=== PATIENT | male | born 1980 | race African-American/Black ===

== ENCOUNTER 2018-08-16 14:07 | Inpatient (IN) | payer OTHER ==
[2018-08-16 15:34] VITALS: BMI 26.1
--- NOTE | 2018-08-16 16:33 | HP ---
CIWA Score - Admission Criteria [facility] Guidelines: Admission for Medically Managed Detox: Requires at least one of the followin. CIWA greater than 12 2. Seizures within the past 24 hours 3. Delirium tremens within the past 24 hours 4. Hallucinations within the past 24 hours 5. Acute intervention needed for co occurring medical disorder 6. Acute intervention needed for co occurring psychiatric disorder 7. Severe withdrawal that cannot be handled at a lower level of care (continued vomiting, continued diarrhea, abnormal vital signs) requiring intravenous medication and/or fluids 8. Admission ROS S - HPI Chief Complaint: here for rehab from cocaine/THC. 37 yo with no medical problems. Says smokes "eight ball" of cocaine a day. States he is hoping to stay away from using cocaine. Lives in [place]. Says never been here. MJ- last use 2-3 weeks ago. IStop: Suboxone 8/2mg #60 strips in June and August 04. Pt states he is not using opiates- and pt states not taking this- someone took it from him. Allergies/Adverse Reactions: Allergies Allergy/AdvReac Type Severity Reaction Status Date / Time No Known Allergies Allergy Verified 08/16/18 15:31 Exam Limitations: No Limitations - Ebola screening Have you traveled outside of the country in the last 21 days: No Have you had contact with anyone from an Ebola affected area: No Do you have a fever: No - Review of Systems Constitutional: No Symptoms Reported EENT: reports: No Symptoms Reported Respiratory: reports: No Symptoms reported Cardiac: reports: No Symptoms Reported GI: reports: No Symptoms Reported : reports: No Symptoms Reported Musculoskeletal: reports: No Symptoms Reported Integumentary: reports: No Symptoms Reported Neuro: reports: No Symptoms reported Endocrine: reports: No Symptoms Reported Hematology: reports: No Symptoms Reported Psychiatric: reports: No Sypmtoms Reported Patient History - Patient Medical History Hx Anemia: Yes - Patient Surgical History Past Surgical History: No - PPD History Previous Implant?: Yes - Smoking Cessation Smoking history: Current every day smoker Aproximately how many cigarettes per day: 3 Hx Chewing Tobacco Use: No Initiated information on smoking cessation: Yes 'Breaking Loose' booklet given: 08/16/18 - Substance & Tx. History Hx Substance Use: Yes Substance Use Type: Cocaine, Marijuana Hx Substance Use Treatment: No - Substances abused Cocaine Substance route: Smoking Frequency: Daily Amount used: $200 Age of first use: 24 Date of last use: 08/15/18 Crack Substance route: Smoking Frequency: Daily Amount used: $200 Age of first use: 24 Date of last use: 08/15/18 Family Disease History - Family Disease History Family Disease History: Diabetes: Sister ( from DM) Admission Physical Exam S - Vital Signs Vital Signs: Vital Signs - 24 hr 08/16/18 15:32 Temperature 97.6 F Pulse Rate 77 Respiratory 18 Rate Blood Pressure 130/68 - Physical General Appearance: Yes: Within Normal Limits HEENTM: Yes: Within Normal Limits, EOMI, Hearing grossly Normal, Normal ENT Inspection Respiratory: Yes: Within Normal Limits, Chest Non-Tender Neck: Yes: Within Normal Limits Cardiology: Yes: Within Normal Limits, Regular Rate Abdominal: Yes: Within Normal Limits, Normal Bowel Sounds Musculoskeletal: Yes: Within Normal Limits, full range of Motion, Gait Steady Extremities: Yes: Within Normal Limits Neurological: Yes: Within Normal Limits Integumentary: Yes: Within Normal Limits Lymphatic: Yes: Within Normal Limits - Diagnostic (1) Cocaine use disorder Current Visit: Yes Status: Acute (2) Marijuana use Current Visit: Yes Status: Acute (3) Nicotine use disorder Current Visit: Yes Status: Acute Breathalyzer - Breathalyzer Breathalyzer: 0 Urine Drug Screen - Test Device Lot number: [id number] Expiration date: 03/16/20 - Control Is test valid?: Yes - Results Drug screen NEGATIVE: No Urine drug screen results: THC-Marijuana, JOANIE-Cocaine Inpatient Rehab Admission - Rehab Decision to Admit Inpatient rehab admission?: Yes - Initial Determination Are CD services needed?: Yes Free of communicable disease: Yes Not in need of hospitalization: Yes - Rehab Admission Criteria Previous failed treatment: Yes Poor recovery environment: Yes Comorbidities: Yes Lacks judgement: Yes Patient is meeting Inpatient Rehab admission criteria:: Yes
[2018-08-16] MEDS ORDERED: MENTHOL/PHENOL 1 EACH UD MM PRN (17:02)
[2018-08-16] MEDS ORDERED: MAGNESIUM CITRATE 300 ML BOTTLE PO PRN (17:02)
[2018-08-16] MEDS ORDERED: hydrOXYzine PAMOATE 25 MG CAPSULE (FP) PO PRN (17:02)
[2018-08-16] MEDS ORDERED: IBUPROFEN 400 MG TABLET (FP) PO PRN (17:02)
[2018-08-16] MEDS ORDERED: P-EPHED 60MG/TRIPROLIDI 2.5MG TABLET PO PRN (17:02)
[2018-08-16] MEDS ORDERED: MAGNESIUM HYDROX 2400MG/30ML ORAL SUSPENSION 30 ML CUP PO PRN (17:02)
[2018-08-16] MEDS ORDERED: MAG HYDROX/AL HYDROX/SIMETH 30 ML UNIT-DOSE CUP PO PRN (17:02)
[2018-08-16] MEDS ORDERED: LOPERAMIDE HCL 2 MG CAPSULE PO PRN (17:02)
[2018-08-16] MEDS ORDERED: guaiFENesin 200 MG/10 ML 10 ML UNIT-DOSE CUPS PO PRN (17:02)
[2018-08-16] MEDS ORDERED: ACETAMINOPHEN 325 MG TABLET (FP) PO PRN (17:02)
[2018-08-16] MEDS: THIAMINE HCL 100 MG TABLET (FP) PO SCH (21:45)
[2018-08-16] MEDS ORDERED: TUBERCULIN PPD 5 TU/0.1ML VIAL ID ONE (21:47)
[2018-08-16] MEDS: MELATONIN 5 MG TABLETS PO PRN (21:48)
[2018-08-16 23:06] LABS: EPI CELLS 1.4 /HPF (0-5/HPF); PH,URINE 6.5 (5.0-8.0); URINE APPEARANCE CLEAR; URINE BACTERIA 10.3 /hpf (NEGATIVE); URINE BILIRUBIN 1+ (NEGATIVE); URINE CASTS 3 /lpf (0-8); URINE COLOR DK YELLOW; URINE GLUCOSE (UA) NEGATIVE (NEGATIVE); URINE KETONE TRACE (NEGATIVE); URINE LEUK ESTERASE TRACE (NEGATIVE); URINE NITRITE NEGATIVE (NEGATIVE); URINE PROTEIN TRACE (NEGATIVE); URINE RBC 1 /hpf (0-4); URINE UROBILINOGEN 4.0 E.U/dl mg/dL (0.2-1.0); URINE WBC 2 /hpf (0-5)
[2018-08-17 10:13] LABS: HEMATOCRIT 41.8 % (35.4-49); HEMOGLOBIN 13.7 GM/dL (11.7-16.9); MCH 28.7 pg (25.7-33.7); MCHC 32.8 g/dl (32.0-35.9); MEAN CELL VOLUME 87.6 fl (80-96); MEAN PLT VOLUME 10.4 fl (7.5-11.1); PLATELET COUNT 178 K/MM3 (134-434); RBC 4.78 M/mm3 (4.00-5.60); RDW 14.3 % (11.9-15.9); WHITE BLOOD COUNT 4.1 K/mm3 (4.0-10.0)
[2018-08-17 10:33] LABS: ALBUMIN 3.6 g/dl (3.4-5.0); ALK PHOS 55 U/L (45-117); ANION GAP 7 MMOL/L (8-16); BILIRUBIN,TOTAL 0.3 mg/dL (0.2-1); BLOOD UREA NITROGEN 12 mg/dL (7-18); CALCIUM 9.2 mg/dL (8.5-10.1); CHLORIDE 108 mmol/L (98-107); CO2 26 mmol/L (21-32); CREATININE 0.8 mg/dL (0.55-1.3); GLUCOSE,RANDOM 112 mg/dL (74-106); POTASSIUM 3.6 mmol/L (3.5-5.1); SGOT/AST 16 U/L (15-37); SGPT/ALT 23 U/L (13-61); SODIUM 141 mmol/L (136-145); TOT PROT 6.6 g/dl (6.4-8.2)
[2018-08-17] MEDS: PRENATAL VITAMINS W/ FOLIC ACID TABLET (FP) PO SCH (10:38)
[2018-08-17] MEDS: MELATONIN 5 MG TABLETS PO PRN (21:27)
[2018-08-17] MEDS: THIAMINE HCL 100 MG TABLET (FP) PO SCH (21:27)
--- NOTE | 2018-08-18 09:34 | PN ---
[facility] Progress Note Note: Resident seen and evaluated per report from RN that patient had an unwitnessed fall. Per patient, he was walking, felt faint and hit the L side of his face on the floor", he endorses a "few seconds" of LOC. Patient was met on bed in his room, A & O x 3, not in acute distress. No ecchymosis, laceration or swelling is noted to face, Outer corner of L eye tender to touch, no vision changes. Patient will be seen to the ED at [facility] for post fall eval. Report given to MD Gatica.
[2018-08-18] MEDS: PRENATAL VITAMINS W/ FOLIC ACID TABLET (FP) PO SCH (10:41)
[2018-08-18] MEDS: THIAMINE HCL 100 MG TABLET (FP) PO SCH (21:30)
[2018-08-18] MEDS: MELATONIN 5 MG TABLETS PO PRN (21:32)
[2018-08-19] MEDS: PRENATAL VITAMINS W/ FOLIC ACID TABLET (FP) PO SCH (10:26)
[2018-08-19] MEDS: THIAMINE HCL 100 MG TABLET (FP) PO SCH (21:24)
[2018-08-19] MEDS: MELATONIN 5 MG TABLETS PO PRN (21:24)
[2018-08-20] MEDS: PRENATAL VITAMINS W/ FOLIC ACID TABLET (FP) PO SCH (10:57)
[2018-08-20] MEDS: MELATONIN 5 MG TABLETS PO PRN (21:24)
[2018-08-20] MEDS: THIAMINE HCL 100 MG TABLET (FP) PO SCH (21:24)
[2018-08-21] MEDS: PRENATAL VITAMINS W/ FOLIC ACID TABLET (FP) PO SCH (10:19)
[2018-08-21] MEDS: THIAMINE HCL 100 MG TABLET (FP) PO SCH (21:17)
[2018-08-21] MEDS: MELATONIN 5 MG TABLETS PO PRN (21:17)
[2018-08-22] MEDS: PRENATAL VITAMINS W/ FOLIC ACID TABLET (FP) PO SCH (10:48)
[2018-08-22] MEDS: THIAMINE HCL 100 MG TABLET (FP) PO SCH (21:33)
[2018-08-23 07:01] VITALS: TEMP 97.3
[2018-08-23 09:53] VITALS: BP 111/62; PULSE 70
[2018-08-23] MEDS: PRENATAL VITAMINS W/ FOLIC ACID TABLET (FP) PO SCH (10:28)
--- NOTE | 2018-08-23 19:58 | PN ---
[facility] Progress Note Note: DISCHARGE Vital Signs Temperature 97.3 F L 08/23/18 07:00 Pulse Rate 70 08/23/18 09:30 Respiratory Rate 18 08/23/18 09:30 Blood Pressure 111/62 08/23/18 09:30 O2 Sat by Pulse Oximetry (%) Laboratory Last Values WBC 4.1 K/mm3 (4.0-10.0) 08/17/18 07:43 RBC 4.78 M/mm3 (4.00-5.60) 08/17/18 07:43 Hgb 13.7 GM/dL (11.7-16.9) 08/17/18 07:43 Hct 41.8 % (35.4-49) 08/17/18 07:43 MCV 87.6 fl (80-96) 08/17/18 07:43 MCH 28.7 pg (25.7-33.7) 08/17/18 07:43 MCHC 32.8 g/dl (32.0-35.9) 08/17/18 07:43 RDW 14.3 % (11.9-15.9) 08/17/18 07:43 Plt Count 178 K/MM3 (134-434) 08/17/18 07:43 MPV 10.4 fl (7.5-11.1) 08/17/18 07:43 Sodium 141 mmol/L (136-145) 08/17/18 07:43 Potassium 3.6 mmol/L (3.5-5.1) 08/17/18 07:43 Chloride 108 mmol/L (98-107) H 08/17/18 07:43 Carbon Dioxide 26 mmol/L (21-32) 08/17/18 07:43 Anion Gap 7 MMOL/L (8-16) L 08/17/18 07:43 BUN 12 mg/dL (7-18) 08/17/18 07:43 Creatinine 0.8 mg/dL (0.55-1.3) 08/17/18 07:43 Creat Clearance w eGFR 108.77 (>60) 08/17/18 07:43 POC Glucometer 115 UNITS (80-120) 08/18/18 09:30 Random Glucose 112 mg/dL (74-106) H 08/17/18 07:43 Calcium 9.2 mg/dL (8.5-10.1) 08/17/18 07:43 Total Bilirubin 0.3 mg/dL (0.2-1) 08/17/18 07:43 AST 16 U/L (15-37) 08/17/18 07:43 ALT 23 U/L (13-61) 08/17/18 07:43 Alkaline Phosphatase 55 U/L (45-117) 08/17/18 07:43 Total Protein 6.6 g/dl (6.4-8.2) 08/17/18 07:43 Albumin 3.6 g/dl (3.4-5.0) 08/17/18 07:43 Urine Color Dk yellow 08/16/18 21:20 Urine Appearance Clear 08/16/18 21:20 Urine pH 6.5 (5.0-8.0) 08/16/18 21:20 Ur Specific [place] 1.040 (1.010-1.035) H 08/16/18 21:20 Urine Protein Trace (NEGATIVE) 08/16/18 21:20 Urine Glucose (UA) Negative (NEGATIVE) 08/16/18 21:20 Urine Ketones Trace (NEGATIVE) H 08/16/18 21:20 Urine Blood Negative (NEGATIVE) 08/16/18 21:20 Urine Nitrite Negative (NEGATIVE) 08/16/18 21:20 Urine Bilirubin 1+ (NEGATIVE) H 08/16/18 21:20 Urine Urobilinogen 4.0 e.u/dl mg/dL (0.2-1.0) 08/16/18 21:20 Ur Leukocyte Esterase Trace (NEGATIVE) 08/16/18 21:20 Urine WBC (Auto) 2 /hpf (0-5) 08/16/18 21:20 Urine RBC (Auto) 1 /hpf (0-4) 08/16/18 21:20 Urine Casts (Auto) 3 /lpf (0-8) 08/16/18 21:20 U Pathogenic Cast Auto No Result Required. 08/16/18 21:20 U Epithel Cells (Auto) 1.4 /HPF (0-5/HPF) 08/16/18 21:20 U Sm Round Cell (Auto) No Result Required. 08/16/18 21:20 Urine Crystals (Auto) No Result Required. 08/16/18 21:20 Urine Bacteria (Auto) 10.3 /hpf (NEGATIVE) 08/16/18 21:20 RPR Titer Nonreactive (NONREACTIVE) 08/17/18 07:43 Patient left AMA after participating in verbal altercation with another patient , did not wait for provider. - Diagnostic (1) Cocaine use disorder Current Visit: Yes Status: Acute (2) Marijuana use Current Visit: Yes Status: Acute (3) Nicotine use disorder Current Visit: Yes Status: Acute
== END 2018-08-23 07:31 | disposition left against medical advice (07) | DRG 770 ==
LOC: YASAS 14:07 → Y3W 17:43
PROVIDERS: ADMIT Neuromusculoskeletal Medicine & OMM; ATTEND Neuromusculoskeletal Medicine & OMM
PROC: HZ42ZZZ Group Counseling for Substance Abuse Treatment, Cognitive-Behavioral (ICD-10-PCS; principal; 2018-08-16)
DX: F14.20 Cocaine dependence, uncomplicated (principal); F12.20 Cannabis dependence, uncomplicated; F17.210 Nicotine dependence, cigarettes, uncomplicated; S09.93XA Unspecified injury of face, initial encounter; W19.XXXA Unspecified fall, initial encounter; Y93.89 Activity, other specified; Y92.238 Other place in hospital as the place of occurrence of the external cause; Y99.8 Other external cause status
CPT/HCPCS: 36415; 80053; 81003; 82962; 85027; 86593

== ENCOUNTER 2018-08-18 10:25 | Emergency (ER) | payer OTHER ==
[2018-08-18 10:46] VITALS: TEMP 97.6; BMI 26.1
--- NOTE | 2018-08-18 11:20 | PDOC ---
Documentation entered by Ana Maria Nicholas SCRIBE, acting as scribe for Pan Roque MD. Pan Roque MD: This documentation has been prepared by the Cristopher lee Sammi, SCRIBE, under my direction and personally reviewed by me in its entirety. I confirm that the documentation accurately reflects all work, treatment, procedures, and medical decision making performed by me. History of Present Illness - General Chief Complaint: Syncope/Near Syncope Stated Complaint: SYNCOPE Time Seen by Provider: 08/18/18 10:56 - History of Present Illness Initial Comments: 08/18/18 12:00 The patient is a 37 year old male, with a significant PMH of polysubstance abuse , who presents from [facility] to the emergency department s/p fall. The patient reports experiencing a migraine this morning for about 20 min. He states he stood up during this episode, felt lightheaded/dizzy, and fell down catching himself on a desk. Patient notes hitting the left side of his face. Patient denies LOC, nausea or vision changes. Of note, patient was admitted to [facility] on 08/15 for polysubstance abuse. The patient denies chest pain or shortness of breath. Denies fever, chills, nausea, vomit, diarrhea and constipation. Denies dysuria, frequency, urgency and hematuria. Allergies: NKA Social history: polysubstance abuse Past History - Past Medical History Allergies/Adverse Reactions: Allergies Allergy/AdvReac Type Severity Reaction Status Date / Time No Known Allergies Allergy Verified 08/16/18 15:31 Home Medications: Ambulatory Orders NK [No Known Home Medication] 08/16/18 Anemia: Yes Asthma: No Cardiac Disorders: No COPD: No Diabetes: No GI Disorders: No Disorders: No HTN: No Kidney Stones: No Seizures: No - Surgical History Abdominal Surgery: No Appendectomy: No Cardiac Surgery: No Cholecystectomy: No Lung Surgery: No Neurologic Surgery: No Orthopedic Surgery: No - Reproductive History Testicular Surgery: No - Suicide/Smoking/Psychosocial Hx Smoking History: Current some day smoker Number of Cigarettes Smoked Daily: 3 Information on smoking cessation initiated: No 'Breaking Loose' booklet given: 08/16/18 Drug/Substance Use Hx: Yes (crack) Substance Use Type: Cocaine, Marijuana Hx Substance Use Treatment: No Review of Systems - Review of Systems Comments:: 08/18/18 12:01 GENERAL/CONSTITUTIONAL: No fever or chills. No weakness. HEAD, EYES, EARS, NOSE AND THROAT: No change in vision. No ear pain or discharge. No sore throat. CARDIOVASCULAR: No chest pain or shortness of breath. RESPIRATORY: No cough, wheezing, or hemoptysis. GASTROINTESTINAL: No nausea, vomiting, diarrhea or constipation. GENITOURINARY: No dysuria, frequency, or change in urination. MUSCULOSKELETAL: No joint or muscle swelling or pain. No neck or back pain. SKIN: No rash NEUROLOGIC: (+)migraine (+)dizzines (+)lightheaded. No loss of consciousness, or change in strength/sensation. *Physical Exam - Vital Signs Last Vital Signs Temp Pulse Resp BP Pulse Ox 97.6 F 72 16 109/58 L 98 08/18/18 10:44 08/18/18 10:44 08/18/18 10:44 08/18/18 10:44 08/18/18 10:44 - Physical Exam Comments: 08/18/18 12:01 General: Patient is alert and in no acute distress. Speech is clear and appropriate. Head: Atraumatic and nontender. Neck: The trachea is midline, there is no stridor. There is no midline cervical spine tenderness, full range of motion of neck. Chest: Nontender, no ecchymosis or abrasions. Heart: S1-S2, regular rate and rhythm. No murmurs. Lungs: Clear to auscultation bilaterally. Symmetric chest rise. Abdomen: Soft/nontender/nondistended. Bowel sounds are normal. There is no abdominal or flank ecchymosis. Back/Pelvis: There is no midline spine tenderness or step-off. Pelvis is stable and nontender. Extremities: (+)chronic deformity at the base of the right thumb. No focal bony tenderness throughout. 2+ distal pulses throughout. Neuro: Alert and oriented x3. Cranial nerves II through XII are intact. 5 out of 5 motor strength x4 extremities. [id number] is intact. No pronator drift. Gait is stable. Skin: No abrasions/hematomas/lacerations. Psych: Affect is appropriate. Heart Score/ECG Review #1 ECG reviewed & interpreted by me at: 10:40 General ECG Interpretation: Sinus Rhythm, Normal Rate (72), Normal Intervals ( qtc 396, LVH), No acute ischemic changes (early repolarization) #2 ECG reviewed & interpreted by me at: 11:58 General ECG Interpretation: Sinus Rhythm, Normal Rate (75), Normal Intervals ( qtc 386, LVH), No acute ischemic changes ED Treatment Course - LABORATORY CBC & Chemistry Diagram: 08/18/18 11:45 08/18/18 11:45 - RADIOLOGY Radiology Studies Ordered: Category Date Time Status HEAD CT WITHOUT CONTRAST [CT] Stat CT Scan 08/18/18 10:55 Ordered CHEST X-RAY PORTABLE* [RAD] Stat Radiology 08/18/18 10:55 Ordered Medical Decision Making - Medical Decision Making 08/18/18 11:19 went to see patient on arrival but he walked out of the ED, will list as eloped if does not return. EKG performed at triage without acute arrhythmia or ischemia. 08/18/18 12:04 Patient returned, states he went upstairs to buy some food 37-year-old male with no severe past medical history other than polysubstance abuse sent from [facility] where he is undergoing rehabilitation from cocaine and marijuana for evaluation of fall. Patient has been feeling well, was admitted on 08/16, this morning sustained one of his typical migraine headaches and upon standing became lightheaded and fell to the ground, striking his left face on a desk. He never lost consciousness, denied any other injuries, states the headache resolved and he is currently without any complaints. He reported fall to [facility] staff and was referred to the emergency department under fall protocol. Vitals are normal Patient is very well-appearing and ambulating steadily throughout the department , his trauma exam is unremarkable except for a healed left facial scar and a chronic right thumb deformity. 37-year-old male here for mechanical fall, no loss of consciousness or syncope or seizure activity. Mild head injury without red flags on history or physical exam, neurologically intact. EKG is normal Labs sent CT head per protocol If above is within normal limits, can return to rehabilitation bed 08/18/18 13:25 labs normal, ct without acute pathology, cxr clear. pt continues to ambulate about the department on his own and steady, neuro intact. can d/c from ED and return to [facility] to continue rehab. *DC/Admit/Observation/Transfer Diagnosis at time of Disposition: Accidental fall Qualifiers: Encounter type: initial encounter Qualified Code(s): W19.XXXA - Unspecified fall, initial encounter Minor head injury Qualifiers: Encounter type: initial encounter Qualified Code(s): S09.90XA - Unspecified injury of head, initial encounter - Discharge Dispostion Disposition: HOME Condition at time of disposition: Stable - Referrals - Patient Instructions Printed Discharge Instructions: DI for Closed Head Injury - Post Discharge Activity
[2018-08-18 12:17] LABS: BASO % 0.4 % (0-2.0); EOS % 2.7 % (0-4.5); HEMATOCRIT 45.4 % (35.4-49); HEMOGLOBIN 14.7 GM/dL (11.7-16.9); LYMPH % 33.9 % (8-40); MCH 28.4 pg (25.7-33.7); MCHC 32.4 g/dl (32.0-35.9); MEAN CELL VOLUME 87.6 fl (80-96); MONO % 11.9 % (3.8-10.2); NEUT % 51.1 % (42.8-82.8); PLATELET COUNT 164 K/MM3 (134-434); RBC 5.19 M/mm3 (4.00-5.60); RDW 13.8 % (11.9-15.9); WHITE BLOOD COUNT 4.7 K/mm3 (4.0-10.0)
[2018-08-18 12:35] LABS: INR 0.98 (0.83-1.09); PROTHROMBIN TIME (PATIENT) 11.6 SEC (9.7-13.0)
[2018-08-18 13:20] LABS: ALBUMIN 3.9 g/dl (3.4-5.0); ALK PHOS 53 U/L (45-117); ANION GAP 9 MMOL/L (8-16); BILIRUBIN,TOTAL 0.4 mg/dL (0.2-1); BLOOD UREA NITROGEN 8 mg/dL (7-18); CALCIUM 9.3 mg/dL (8.5-10.1); CHLORIDE 108 mmol/L (98-107); CO2 22 mmol/L (21-32); CREATININE 0.8 mg/dL (0.55-1.3); GLUCOSE,RANDOM 107 mg/dL (74-106); MAGNESIUM 1.8 mg/dL (1.8-2.4); POTASSIUM 5.1 mmol/L (3.5-5.1); SGOT/AST 47 U/L (15-37); SGPT/ALT 35 U/L (13-61); SODIUM 139 mmol/L (136-145); TOT PROT 7.5 g/dl (6.4-8.2)
[2018-08-18 15:06] VITALS: BP 124/72; PULSE 76
--- NOTE | 2018-08-18 16:32 | EKG ---
Test Reason : Blood Pressure : / mmHG Vent. Rate : 072 BPM Atrial Rate : 072 BPM P-R Int : 168 ms QRS Dur : 098 ms QT Int : 362 ms P-R-T Axes : 071 070 065 degrees QTc Int : 396 ms NORMAL SINUS RHYTHM MINIMAL VOLTAGE CRITERIA FOR LVH, MAY BE NORMAL VARIANT BORDERLINE ECG NO PREVIOUS ECGS AVAILABLE Confirmed by LESLIE STEWART MD ([id number]) on 08/18/2018 4:32:04 PM Referred By: Confirmed By:LESLIE STEWART MD
--- NOTE | 2018-08-19 09:19 | EKG ---
Test Reason : Blood Pressure : / mmHG Vent. Rate : 075 BPM Atrial Rate : 075 BPM P-R Int : 170 ms QRS Dur : 088 ms QT Int : 346 ms P-R-T Axes : 056 063 057 degrees QTc Int : 386 ms NORMAL SINUS RHYTHM VOLTAGE CRITERIA FOR LEFT VENTRICULAR HYPERTROPHY ABNORMAL ECG WHEN COMPARED WITH ECG OF 18-AUG-2018 10:40, NO SIGNIFICANT CHANGE WAS FOUND Confirmed by LESLIE STEWART MD ([id number]) on 08/19/2018 9:19:30 AM Referred By: Confirmed By:LESLIE STEWART MD
== END 2018-08-18 15:18 | disposition home or self-care (01) ==
LOC: JER 10:25
DX: S09.8XXA Other specified injuries of head, initial encounter (principal); R51 Headache; W01.190A Fall on same level from slipping, tripping and stumbling with subsequent striking against furniture, initial encounter; Y93.89 Activity, other specified; Y92.238 Other place in hospital as the place of occurrence of the external cause; Y99.8 Other external cause status; F14.10 Cocaine abuse, uncomplicated; F12.10 Cannabis abuse, uncomplicated; F17.210 Nicotine dependence, cigarettes, uncomplicated; Z86.2 Personal history of diseases of the blood and blood-forming organs and certain disorders involving the immune mechanism
CPT/HCPCS: 36415; 70450-TC; 71045-TC-FY; 80053; 82550; 82553; 83735; 84484; 85025; 85610; 93005; 93010; 99282-25